=== PATIENT | female | born 1980 | race Caucasian/White ===

== ENCOUNTER 2022-04-27 06:16 | Day surgery (SDC) | payer BC, SELFPAY ==
[2022-04-27] VITALS (14 sets, daily range): BP systolic 93–138; BP diastolic 65–85; PULSE 50–84; RESP 12–16; TEMP 36.4–36.7; O2SAT 97–100; BMI 20.8
[2022-04-27 06:47] LABS: HCG Qualitative* Negative (Negative)
[2022-04-27] MEDS: LACTATED RINGERS 1000 ML 1,000 ML 100 ML IV (07:00)
[2022-04-27] MEDS: SODIUM CHLORIDE 0.9 % (FLUSH) 10 ML SYRINGE IVF (07:00)
[2022-04-27] MEDS: BUPIVACAINE 0.25% 30 ML INJECTION (08:33)
--- NOTE | 2022-04-27 08:42 | P.GSOP_ITS ---
Operative Note Date of procedure: 04/27/22 Type of Procedure: 1. Laparoscopic cholecystectomy 2. Umbilical hernia repair Procedure Description: After discussing the risks and benefits of the procedure, the patient signed informed consent.? The operative site was marked and the patient was brought to the operating room and placed on the operating table in supine position.? Care was taken to pad the patient's pressure points.?? The patient was then intubated by anesthesia.?? The operative site was then prepped and draped in the usual sterile fashion.? A time-out was then performed. Entrance to the abdomen was gained via a 5 mm Visiport in the left upper quadra nt. The abdomen was insufflated and briefly surveyed for signs of injury. There was none. The umbilicus was examined. There was no hernia sac, however it appeared as though preperitoneal fat had herniated afford at the umbilicus. The 10 mm port was placed through this defect. Two working ports were placed along the right costal margin, all under direct vision. The patient was then placed in reverse Trendelenburg position with the right side up. The gallbladder fundus was grasped and retracted cephalad. The infundibulum was grasped. A combination of hook cautery and blunt dissection was used to carefully dissect out the cystic duct and artery until they could clearly be seen entering the gallbladder without any intervening structures. The gallbladder was dissected off the cystic plate to achieve the critical view. Once this was achieved the cystic duct and artery were each clipped with 2 clips proximally and 1 clip distally and transected with the scissors. The gallbladder was then taken off of the liver bed and removed from the abdomen using an Endo-Catch bag. The gallbladder bed was surveyed for hemostasis which appeared adequate. A small amount of bile which had spilled was suctioned from the abdomen. The ports were then removed and the abdomen desufflated. The umbilical incision was examined. Umbilical stalk was removed from the fascia sharply. The preperitoneal fat which had herniated was removed. Overall this defect was very small, too small to even permit a finger tip. Therefore, I used 0 Vicryl to close the defect. I reapproximated the umbilicus to the fascia using 3-0 Vicryl. The skin was then closed with absorbable suture. Sterile dressings were applied.. Instrument sponge and needle counts were correct at the end of the case. The patient was then woken and transferred to the PACU in stable condition. ? The patient tolerated the procedure well. Findings: Normal appearing gallbladder consistent with biliary dyskinesia Tiny preperitoneal fat containing umbilical hernia which was incorporated into the port site and fascial closure. Anesthesia: GETA Surgeon: Monet Rojo MD Estimated blood loss (mL): 1 Condition: stable Disposition: PACU
--- NOTE | 2022-04-27 08:47 | W.ANESCHARGE ---
Anesthesia Charges Start Date/Time Anesthesia Start Date: 04/27/22 Anesthesia Start Time: 07:31 Stop Date/Time Anesthesia Stop Date: 04/27/22 Anesthesia Stop Time: 08:46 Summary Emergency: No
[2022-04-27] MEDS: MEPERIDINE 25 MG/ML INJ 12.5 MG IVP (09:00)
--- NOTE | 2022-04-27 09:25 | W.ANESCHARGE ---
Anesthesia Charges Start Date/Time Anesthesia Start Date: 04/27/22 Anesthesia Start Time: 07:31 Stop Date/Time Anesthesia Stop Date: 04/27/22 Anesthesia Stop Time: 08:46 Summary Emergency: No
--- NOTE | 2022-04-27 09:48 | SUR.PHASEI ---
0920 PT STABLE TO SDS
--- NOTE | 2022-04-27 10:22 | SUR.PHASEII ---
PATIENT TOLERATING ICE WATER, TOAST AND YOGURT.
== END 2022-04-27 11:25 | disposition home or self-care (01) ==
PROVIDERS: PCP Physician Assistant; Visit Provider Surgery
PROC: 0FT44ZZ Resection of Gallbladder, Percutaneous Endoscopic Approach (ICD-10-PCS; CPT 47562; principal; 2022-04-27 07:30)
DX: K82.8 Other specified diseases of gallbladder (principal); K42.9 Umbilical hernia without obstruction or gangrene
CPT/HCPCS: 47562; 00790; 84703; 88304; J0330; J1100; J1200; J2175; J2405; J2704; J2710; J3010; J3490; J7120